=== PATIENT | female | born 1940 | race Caucasian/White ===

== ENCOUNTER 2017-03-10 11:50 | Observation (INO) | payer MEDICARE ==
[2017-03-10] MEDS ORDERED: Atenolol TAB* 25 MG PO ONE (13:29)
[2017-03-10 14:08] LABS: Hematocrit 45 % (35-47); Hemoglobin 14.4 g/dl (12.0-16.0); Mean Corpuscular HGB Conc 32 g/dl (31-36); Mean Corpuscular Hemoglobin 30 pg (27-31); Mean Corpuscular Volume 93 fL (80-97); Mean Platelet Volume 8 um3 (7.4-10.4); Red Blood Count 4.82 10^6/ul (4.0-5.4); Red Cell Distribution Width 15 % (10.5-15); White Blood Count 8.9 10^3/ul (3.5-10.8)
[2017-03-10 14:29] LABS: Albumin 3.4 g/dL (3.2-5.2); BUN/Creatinine Ratio 20.7 (8-20); EGFR African American 87.6 (>60); EGFR Non-African American 68.1 (>60); Globulin 3.4 g/dL (2-4); Potassium 4.4 mmol/L (3.5-5.0); Total Bilirubin 0.4 mg/dL (0.2-1.0); Total Protein 6.8 g/dL (6.4-8.9)
[2017-03-10 14:31] LABS: Troponin I 0.03 ng/mL (<0.04)
[2017-03-10 14:53] LABS: TSH (Thyroid Stimulating Horm) 0.72 mcIU/mL (0.34-5.60)
[2017-03-10] MEDS ORDERED: Diltiazem IV VIAL* 125 MG in D5W 100 ML BAG* 100 ML IV ONE (15:14)
[2017-03-10] MEDS: Diltiazem DRIP* 100 MG/100 ML ADDV.BAG IVPB ONE ×3 (17:01→17:37)
[2017-03-10] MEDS ORDERED: Ondansetron INJ* 2 MG/ML VIAL IV PRN (17:41)
[2017-03-10] MEDS ORDERED: Acetaminophen TAB* 325 MG PO PRN (17:41)
[2017-03-10] MEDS ORDERED: Levothyroxine TAB* 150 MCG TAB PO SCH (18:00)
[2017-03-10] MEDS ORDERED: Diltiazem DRIP* 100 MG/100 ML ADDV.BAG IVPB SCH ×3 (18:00→20:15)
--- NOTE | 2017-03-10 18:53 | RAD ---
INDICATION: Atrial fibrillation. Hypertension. COMPARISON: Chest x-ray April 29, 2010 TECHNIQUE: An AP portable view obtained at 1733 hours is submitted. FINDINGS: Bones/Soft Tissues: There are no acute bony findings. There is bilateral shoulder arthroplasty Cardiomediastinal: The cardiomediastinal silhouette is normal. Lungs: There are no infiltrates. There is mild hyperinflation. Pleura: There are no pleural effusions. Other: None IMPRESSION: MILD HYPERINFLATION. NO ACTIVE DISEASE.
[2017-03-10] MEDS ORDERED: Rivaroxaban TAB(*) 20 MG TAB PO SCH (20:00)
--- NOTE | 2017-03-11 01:47 | HP ---
HISTORY AND PHYSICAL: * ADDENDUM: DATE OF ADMISSION: 03/10/17 Ms. Hearn is a 76-year-old female with history of atrial fibrillation, on anticoagulation with Xarelto, who presented to the hospital with complaints of palpitations and was noted to be in atrial fibrillation with rapid ventricular response. The patient is going to be admitted on Cardizem drip and if she continues to have rapid atrial fibrillation, she most likely will be cardioverted by cardiology team who was consulted in this case in the morning. For further details of the patient's presentation and plan, please see history and physical dictated by Dillan Hernandez on 03/10/17, with which I agree. [id number]/[facility] #: [id number] MTDD
--- NOTE | 2017-03-11 01:47 | HP ---
ATTENDING PHYSICIAN ADDENDUM NOW INCLUDED ON THIS REPORT CC: Marycarmen Quezada MD; Dr. Evans * HISTORY AND PHYSICAL: DATE OF ADMISSION: 03/10/17 PRIMARY CARE PROVIDER: Marycarmen Quezada MD ATTENDING PHYSICIAN FROM HOSPITAL: Mary Terrell MD * (report dictated by Dillan Hernandez NP). CONSULTING INVENTORY CONTROL CLERK: Dr. Evans. CHIEF COMPLAINT: Palpitations. HISTORY OF PRESENT ILLNESS: Ms. Hearn is a 76-year-old female patient who has a history of hypothyroidism, hypertension, history of paroxysmal atrial fibrillation. She comes into the ER today stating that around midnight around Thursday, she started developing palpitations in her chest that went on throughout Thursday. They got worse when she got up. She had no chest pain. No lightheadedness. She did not lose consciousness and she had no diaphoresis or nausea associated with it. She tried Valsalva maneuver. She tried bearing down to help convert her, unfortunately this was not successful, so she decided to call her primary mainframe software developer as she knew that being in this for too long, she may need to be cardioverted. She called Dr. Blanchard's office and she was sent to the hospital for evaluation. She was evaluated in the ER. Initially, there was an extra dose of a beta polo given to the patient, unfortunately she did not slow down with this at all, so a diltiazem drip was started and because of this, we were asked to evaluate for admission. PAST MEDICAL HISTORY: Significant for: 1. Afib. 2. Hypothyroidism. 3. Hypertension. 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 HOME MEDICATIONS: According to her include: 1. Norvasc 5 mg daily. 2. Vitamin B1 capsule p.o. daily. 3. Xarelto 20 mg daily. 4. Multivitamin 1 tablet daily. 5. Synthroid 75 mcg on Thursday. 6. Synthroid 150 mcg p.o. Thursday, Thursday, Thursday, Thursday, and Thursday. 7. Ferrous sulfate 50 mg daily. 8. Atenolol 25 mg daily. ALLERGIES TO MEDICATIONS: Include ERYTHROMYCIN, HYDROCHLOROTHIAZIDE, LATEX, LEVAQUIN and PENICILLIN. FAMILY HISTORY: Her mother had breast cancer. Father had history of CAD. SOCIAL HISTORY: She does not smoke. She does drink 3 times a week, it is mostly wine. Surrogate decision maker is her . REVIEW OF SYSTEMS: There is no documented fever. She denied having any significant weight change. There was no double vision. There was no ear discharge. She denied having any rhinorrhea. No sore throat. No thyroid enlargement. She denied having any chest pain, no orthopnea and no nocturnal dyspnea. There was no abdominal pain, no nausea, no vomiting, no dysuria and no frequency. There was no seizure, no loss of consciousness. No pruritus and no skin ulcerations. Review of 14 systems completed, all others negative. PHYSICAL EXAMINATION GENERAL: At this time, Ms. Hearn is a 76-year-old female patient. She appears to be well nourished, well developed, does not appear to be in any acute distress. VITAL SIGNS: Blood pressure 133/79 with pulse 101, respirations 18, O2 saturation 97%, temperature 98.3. HEENT: Head is atraumatic, normocephalic. Eyes: EOMs intact. Sclerae are anicteric, not pale. Throat: Oral mucosa appears to be moist. No oropharyngeal erythema. NECK: Supple. LUNGS: Clear to auscultation bilaterally. No wheezes, rales or rhonchi. HEART: Sounds S1, S2. Irregularly irregular rate and rhythm. There was a grade 2/3 murmur heard in the aortic listening area. ABDOMEN: Soft, flat, nontender. Bowel sounds were present. EXTREMITIES: Pulses 2+ throughout. She is able to move all 4 extremities with 5/5 strength. NEUROLOGIC: The patient is awake, is alert and oriented x3. Her tongue is midline. Human Resources Support Specialist are equal. No gross focal deficits. SKIN: Grossly intact. DIAGNOSTIC STUDIES/LAB DATA: Revealed a WBC of 8.9, RBC of 4.82, hemoglobin of 14.4, hematocrit of 45, platelet count of 222,000. INR 1.21. Sodium 139, potassium 4.4, chloride of 106. Bicarb is 27. BUN 17, creatinine 0.82, glucose 85, lactic 1.1, calcium 9.0, mag 2, total bili of 0.4, AST 23, ALT 22, alk phos 79, troponin 0.03, albumin of 3.4, TSH normal at 0.72. She did have an EKG obtained today. EKG showed atrial fibrillation with rate of 106. No ST elevations or T-waves inversions were noted. It was reviewed with previous EKG which is from 6 years ago. The Afib is now new on this rhythm here, but she does carry a history. No other changes are noted. Old medical records were reviewed. ASSESSMENT AND PLAN: Ms. Hearn is a 76-year-old female patient who comes to the ER today with complaints of palpitations, found to be in atrial fibrillation with rapid ventricular response. She will be admitted on observation status for: 1. Atrial fibrillation. At this point, she has been on anticoagulation. She has been taking it religiously. My plan is to go ahead and continue her on a diltiazem drip and see if this will help convert her. She is right around 70 to 80 on 15 mg an hour. The plan is to make her n.p.o. after midnight if she does not convert for DC cardioversion. I did touch base with Dr. Evans, he is in agreement. Her mag, potassium and TSH are all normal. 2. Hypertension, continue meds as described with the exception that I am holding the Norvasc because this is a calcium channel polo and she is going to be on diltiazem drip. 3. Hypothyroidism, continue her Synthroid. 4. DVT prophylaxis. She is on Xarelto. 5. Code status: Full code. 7. Fluid, electrolytes, and nutrition: She can have a heart healthy diet and n.p.o. after midnight. TIME SPENT: Time spent on admission, 60 minutes, greater than half the time spent [id number] with the patient obtaining my history and physical; other half time spent going over the plan of care with the patient and implementing the plan of care. I discussed the plan of care with my attending, Dr. Terrell; she is in agreement. DILLAN HERNANDEZ NP ADDENDUM: DATE OF ADMISSION: 03/10/17 Ms. Hearn is a 76-year-old female with history of atrial fibrillation, on anticoagulation with Xarelto, who presented to the hospital with complaints of palpitations and was noted to be in atrial fibrillation with rapid ventricular response. The patient is going to be admitted on Cardizem drip and if she continues to have rapid atrial fibrillation, she most likely will be cardioverted by cardiology team who was consulted in this case in the morning. For further details of the patient's presentation and plan, please see history and physical dictated by Dillan Hernandez on 03/10/17, with which I agree. MARY TERRELL MD [id number]/[facility] #: [id number]/[facility] #: [id number] STEPHEN
[2017-03-11 05:01] LABS: Hematocrit 44 % (35-47); Hemoglobin 14.2 g/dl (12.0-16.0); Mean Corpuscular HGB Conc 33 g/dl (31-36); Mean Corpuscular Hemoglobin 30 pg (27-31); Mean Corpuscular Volume 93 fL (80-97); Mean Platelet Volume 8 um3 (7.4-10.4); Red Blood Count 4.74 10^6/ul (4.0-5.4); Red Cell Distribution Width 15 % (10.5-15); White Blood Count 9.3 10^3/ul (3.5-10.8)
[2017-03-11 05:14] LABS: Calcium 8.8 mg/dL (8.6-10.3); EGFR African American 91.5 (>60); EGFR Non-African American 71.1 (>60)
[2017-03-11] MEDS ORDERED: Levothyroxine TAB* 150 MCG TAB PO SCH (06:00)
[2017-03-11] MEDS ORDERED: Atenolol TAB* 25 MG PO SCH (06:30)
[2017-03-11] MEDS ORDERED: Midazolam* 1 MG/ML 5 ML VIAL (5 MG) ONE (12:24)
[2017-03-11] MEDS ORDERED: Flumazenil* 0.1 MG/ML 5 ML MDV ONE (12:25)
[2017-03-11] MEDS ORDERED: Naloxone* 0.4 MG/ML 1 ML VIAL ONE (12:25)
[2017-03-11] MEDS ORDERED: fentaNYL* 50 MCG/ML 2 ML VIAL (100 MCG VIAL) ONE (12:25)
--- NOTE | 2017-03-11 12:49 | CONSULT ---
Subjective Date of Service: 03/11/17 - CC: fluttering, atrial fibrillation Interval History: 76 yo followed by me for a history of paroxysmal atrial fibrillation. The patient had wine Thursday, more than usual. 2 1/2 glasses. When she went to bed she felt fine, awoke with fluttering of the chest, no CP, dizziness or SOB. She has been taking her Xarelto regularly. Family History: Unchanged from Admission - Father + CAD, mother + Breast CA. Social History: Unchanged from Admission - 1 1/2 glasses wine 3 x/week, , non smoker. Past Medical History: Findings - Paroxysmal atrial fibrillation, hypothyroid diseased, hypertension, obese. Medications Active Medications: Acetaminophen (Tylenol Tab*) 650 mg PO Q4H PRN PRN Reason: FEVER/PAIN Atenolol (Tenormin Tab*) 25 mg PO 0630 [facility] Last Admin: 03/11/17 06:35 Dose: 25 mg Levothyroxine Sodium (Synthroid Tab*) 75 mcg PO Sa@0600 [facility] Levothyroxine Sodium (Synthroid Tab*) 150 mcg PO SuMoTuWeThFr@0600 [facility] Last Admin: 03/11/17 06:24 Dose: 150 mcg Ondansetron HCl (Zofran Inj*) 4 mg IV Q6H PRN PRN Reason: NAUSEA Rivaroxaban (Xarelto (*)) 20 mg PO DAILY@1700 [facility] Last Admin: 03/10/17 20:24 Dose: 20 mg Home Medications: Atenolol TAB* [Tenormin TAB*] 25 mg PO DAILY 03/20/14 [History Confirmed ] Levothyroxine Sodium [Levoxyl] 150 mcg PO SUMOTUWETHFR 03/20/14 [History Confirmed 03/10/17] amLODIPine TAB* [Norvasc TAB*] 5 mg PO DAILY 03/20/14 [History Confirmed ] Ferrous Sulfate [Iron (Ferrous Sulfate)] 50 mg PO DAILY 03/10/17 [History Confirmed 03/10/17] Levothyroxine TAB* [Synthroid TAB*] 75 mcg PO SA 03/10/17 [History Confirmed 08/26] Multiple Vitamins W/ Minerals [Multivitamin Adults] 1 tab PO DAILY 03/10/17 [ History Confirmed 03/10/17] Rivaroxaban TAB(*) [Xarelto 20 mg] 20 mg PO DAILY 03/10/17 [History Confirmed ] Vitamin B Complex CAP* [B Complex CAP*] 1 cap PO DAILY 03/10/17 [History Confirmed 03/10/17] Review of Systems - Measurements Intake and Output: Intake and Output Last 24 Hours 03/09/17 03/10/17 03/11/17 03/12/17 04:59 04:59 04:59 04:59 Intake Total 420 0 Output Total 0 550 Balance 420 -550 Weight 227 lb Intake: Oral 420 0 Output: Urine 0 550 Other: Estimated Void Medium # Bowel Movements 0 # Voids 1 - Review of Systems Constitutional Symptoms: Negative: Weight Gain, Weight Loss, Weakness, Fatigue, Fever, Night Sweats, Unexplained Falls, Other Dermatology: Positive: Normal Negative: Rash HEENT: Positive: Normal Negative: Vertigo, Sinus Problem Eyes: Positive: Normal Thyroid: Positive: Palpitations Pulmonary: Positive: Normal Negative: Cough, Wheezing, Shortness of Breath Cardiology: Negative: Chest Pain, Shortness of Breath, Swelling of Ankles, Faintness, Orthopnea, Other Gastroenterology: Positive: Normal Genital - Urinary: Positive: Normal Musculoskeletal: Negative: Joint Pain, Arthritis Neurology: Positive: Normal Psychiatry: Positive: Normal Review of Systems Statement: All other review of systems negative, unless stated above. Objective Vital Signs: Temp Pulse Resp BP Pulse Ox 98.5 F 53 20 133/60 98 03/11/17 11:11 03/11/17 07:14 03/11/17 11:11 03/11/17 11:11 03/11/17 11:11 Oxygen Devices in Use Now: None Appearance: obese older woman, lying 20 degrees, comfortable Eyes: No Scleral Icterus, PERRLA Ears/Nose/Mouth/Throat: NL Teeth, Lips, Gums, Clear Oropharnyx, Mucous Membranes Moist Neck: NL Appearance and Movements; NL JVP Respiratory: Symmetrical Chest Expansion and Respiratory Effort, Clear to Auscultation Cardiovascular: NL Sounds; No Murmurs; No JVD - irregularly irregular Abdominal: NL Sounds; No Tenderness; No Distention, No Hepatosplenomegaly Extremities: No Edema, No Clubbing, Cyanosis Skin: No Rash or Ulcers - lazar sun exposed skin. Neurological: Alert and Oriented x 3, NL Muscle Strength and Tone Lines/Tubes/Other Access: Clean, Dry and Intact Peripheral IV Laboratory Results: 03/11/17 04:29 03/11/17 04:29 INR (Anticoag Therapy) 1.29 (0.89-1.11) H 03/10/17 13:55 Total Bilirubin 0.40 mg/dL (0.2-1.0) 03/10/17 13:55 AST 23 U/L (13-39) 03/10/17 13:55 ALT 22 U/L (7-52) 03/10/17 13:55 Alkaline Phosphatase 79 U/L (34-104) 03/10/17 13:55 Total Protein 6.8 g/dL (6.4-8.9) 03/10/17 13:55 Albumin 3.4 g/dL (3.2-5.2) 03/10/17 13:55 Globulin 3.4 g/dL (2-4) 03/10/17 13:55 Albumin/Globulin Ratio 1.0 (1-3) 03/10/17 13:55 TSH 0.72 mcIU/mL (0.34-5.60) 03/10/17 13:55 EKG Data: s/p succesful electrical cardioversion. Assessment/Plan 76 yo with paroxysmal atrial fibrillation, last episode 2010, now presents with recurrent atrial fibrillation following a bit more wine intake than usual. I re educated about alcohol contributing to atrial fibrillation. Electrolytes and thyroid levels look good. Successful cardioversion. Plan: Discharge on current medications. Minimize, avoid alcohol. No antiarrhythmic for now. Follow up with me, Dr. Acosta in 1 month.
[2017-03-11 14:06] VITALS: BP 105/57
--- NOTE | 2017-03-12 03:34 | CARD ---
CC: Hospitalist* ELECTRICAL CARDIOVERSION NOTE: DATE OF PROCEDURE: 03/11/17 - ROOM #432 SURGEON: Neyda Acosta MD PROCEDURE: Electrical cardioversion. PRE-PROCEDURE DIAGNOSIS: Atrial fibrillation. POST-PROCEDURE DIAGNOSIS: Atrial fibrillation. INDICATIONS: The indications, risks, and benefits of the procedure were discussed with the patient. She has been taking anticoagulants regularly. DESCRIPTION OF PROCEDURE: A time-out procedure was called. The patient received a total of 5 mg of Versed and 50 mcg of fentanyl for sedation. Using AP paddles, 120 joules of energy was delivered across the chest wall with successful cardioversion to normal sinus rhythm. The patient was hemodynamically stable throughout the procedure and there were no complications. [id number]/[facility] #: [id number] MTDD
--- NOTE | 2017-03-13 03:00 | DS ---
CC: Dr. Blanchard * DISCHARGE SUMMARY: DATE OF ADMISSION: 03/10/17 DATE OF DISCHARGE: 03/11/17 DISCHARGE DIAGNOSES: 1. Paroxysmal atrial fibrillation. 2. Hypothyroidism. 3. Hypertension. HISTORY: The patient is a 76-year-old woman admitted with atrial fibrillation, lasting about 36 hours in the setting of prior paroxysmal atrial fibrillation with patient on Xarelto. The patient gives additional history that she had more wine than usual on the evening before this started and had eaten chocolate which is unusual for her. Otherwise, please see the dictated admission note for details of the present illness, past medical history, family history, social and personal history, review of systems and physical examination. LABORATORY DATA: CBC: WBC 8.9, H and H 14.4/45, MCV 93, PLT 222,000. Repeat CBC on 03/11/17 was essentially unchanged. INR was 1.29. Chemistries: Sodium 139, potassium 4.4, chloride 106, CO2 27, BUN and creatinine 17/0.82, glucose 85. Rest of the comprehensive metabolic panel was normal. Troponin was normal at 0.03. TSH was normal at 0.72. Lactic acid normal at 1.1. BNP on 03/11/17 was essentially within normal limits. IMAGING: Chest x-ray on , showed mild hyperinflation, no active disease. EKG on 03/10/17, showed atrial fibrillation, ventricular rate 75 to 156. Borderline left axis deviation, borderline repolarization abnormality with ST depressions. EKG on 03/11/17, showed sinus bradycardia, probable left atrial enlargement. Cardiology consultation and cardioversion on 03/11/17, Dr. eNyda Acosta felt that the patient had paroxysmal atrial fibrillation, possibly related to having more wine than usual. She re-educated the patient about alcohol contributing to atrial fibrillation and successfully cardioverted her. HOSPITAL COURSE: The patient was admitted. She was placed on a diltiazem drip. This was stopped when she had a 2.7 seconds pause. Her Norvasc was held because she was going to be on the diltiazem drip. Her usual other medications were continued. She was a full code. On 03/11/17, she was cardioverted successfully. This was done under sedation. Rhythm following cardioversion was sinus bradycardia. She felt fine. She was discharged on 03/11/17. MEDICATIONS: At the time of discharge, her medications are: 1. Amlodipine 5 mg daily. 2. Atenolol 25 mg daily. 3. Levothyroxine 150 mcg 6 days a week, 75 mcg 1 day a week. 4. Vitamin B Complex. 5. Xarelto 20 mg daily. 6. Multivitamins once a day. 7. Ferrous sulfate 50 mg daily. FOLLOWUP: She will follow up with me in 5 to 7 days. She should see the service delivery supervisor as well. DIET: Usual with limited alcohol. ACTIVITY: As usual. [id number]/[facility] #: [id number] MTDD
--- NOTE | 2017-03-13 15:58 | ED ---
I, Oh,Somirna, scribed for Dustin Herrera MD on 03/10/17 at 1328 . Palpitations / Dysrhythmia - HPI Summary HPI Summary: This 76 y/o female presents to ED for racing palpitation since 0000 AM a day ago. Negative CP, SOB. Positive intermittent diaphoresis and fatigue. Pt took atenolol without much relief. PMHx is significant for known afib with hx of cardioversion in 2010 and last episode in November 2015. She is currently on Xarelto. Primary care involves Dr. Blanchard as jail keeper. - History of Current Complaint Chief Complaint: EDDysrhythmPalp Time Seen by Provider: 03/10/17 13:17 Hx Obtained From: Patient, Medical Records Onset/Duration: Sudden Onset Character: Fast Aggravating: Nothing Alleviating: Nothing Associated Signs & Symptoms: Negative, Diaphoresis - Allergy/Home Medications Allergies/Adverse Reactions: Allergies Allergy/AdvReac Type Severity Reaction Status Date / Time Erythromycin Allergy Unknown Verified 03/10/17 11:52 Reaction Details Hydrochlorothiazide Allergy Unknown Verified 03/10/17 11:52 Reaction Details Latex Allergy Unknown Verified 03/10/17 11:52 Reaction Details Levofloxacin [From Levaquin] Allergy Unknown Verified 03/10/17 11:52 Reaction Details Penicillins Allergy Unknown Verified 03/10/17 11:52 Reaction Details Home Medications: Home Medications Ferrous Sulfate [Iron (Ferrous Sulfate)] 50 mg PO DAILY 03/10/17 [History Confirmed 03/10/17] Levothyroxine TAB* [Synthroid TAB*] 75 mcg PO SA 03/10/17 [History Confirmed 08/26] Multiple Vitamins W/ Minerals [Multivitamin Adults] 1 tab PO DAILY 03/10/17 [ History Confirmed 03/10/17] Rivaroxaban TAB(*) [Xarelto 20 mg] 20 mg PO DAILY 03/10/17 [History Confirmed ] Vitamin B Complex CAP* [B Complex CAP*] 1 cap PO DAILY 03/10/17 [History Confirmed 03/10/17] PMH/Surg Hx/FS Hx/Imm Hx Cardiovascular History: Reports: Hx Atrial Fibrillation Denies: Hx Pacemaker/ICD Musculoskeletal History: Denies: Hx Rheumatoid Arthritis, Hx Osteoporosis Sensory History: Denies: Hx Hearing Aid Psychiatric History: Denies: Hx Panic Disorder - Cancer History Hx Chemotherapy: No Hx Radiation Therapy: No - Surgical History Surgery Procedure, Year, and Place: [place] [facility] [place] [facility] [place] [facility] [place] [facility] [place] [facility] [place] Infectious Disease History: No Infectious Disease History: Denies: Traveled Outside the [place] in Last 30 Days - Family History Known Family History: Positive: Cardiac Disease - CAD to father, Other - Positive breast CA to mother - Social History Alcohol Use: Weekly Alcohol Amount: three times a week Hx Substance Use: No Substance Use Type: Reports: None Hx Tobacco Use: No Smoking Status (MU): Never Smoked Tobacco Review of Systems Positive: Skin Diaphoresis - intermittent. Negative: Fever Positive: Palpitations. Negative: Chest Pain Negative: Shortness Of Breath All Other Systems Reviewed And Are Negative: Yes Physical Exam Triage Information Reviewed: Yes Vital Signs On Initial Exam: Initial Vitals Temp Pulse Resp BP Pulse Ox 98.2 F 147 18 131/87 98 03/10/17 11:53 03/10/17 11:53 03/10/17 11:53 03/10/17 11:53 03/10/17 11:53 Vital Signs Reviewed: Yes Appearance: Positive: Well-Appearing, No Pain Distress, Obese Skin: Positive: Warm, Skin Color Reflects Adequate Perfusion, Dry Head/Face: Positive: Normal Head/Face Inspection Eyes: Positive: Normal ENT: Positive: Normal ENT inspection Neck: Positive: Supple, Nontender Respiratory/Lung Sounds: Positive: Breath Sounds Present Cardiovascular: Positive: IRR, Tachycardia Abdomen Description: Positive: Nontender, Soft Musculoskeletal: Positive: Normal Neurological: Positive: Normal Psychiatric: Positive: Affect/Mood Appropriate AVPU Assessment: Alert - [place] Coma Scale Coma Scale Total: 15 Diagnostics - Vital Signs Vital Signs Temp Pulse Resp BP Pulse Ox 03/10/17 12:27 98.3 F 108 18 125/75 97 03/10/17 11:53 98.2 F 147 18 131/87 98 - Laboratory Lab Results: Lab Results 03/10/17 03/10/17 03/10/17 Range/Units 13:55 13:55 13:55 WBC 8.9 (3.5-10.8) 10^3/ul RBC 4.82 (4.0-5.4) 10^6/ul Hgb 14.4 (12.0-16.0) g/dl Hct 45 (35-47) % MCV 93 (80-97) fL MCH 30 (27-31) pg MCHC 32 (31-36) g/dl RDW 15 (10.5-15) % Plt Count 222 (150-450) 10^3/ul MPV 8 (7.4-10.4) um3 Neut % (Auto) 65.5 (38-83) % Lymph % (Auto) 21.7 L (25-47) % [place] % (Auto) 11.0 H (1-9) % Eos % (Auto) 1.3 (0-6) % Baso % (Auto) 0.5 (0-2) % Absolute Neuts (auto) 5.8 (1.5-7.7) 10^3/ul Absolute Lymphs (auto) 1.9 (1.0-4.8) 10^3/ul Absolute Monos (auto) 1.0 H (0-0.8) 10^3/ul Absolute Eos (auto) 0.1 (0-0.6) 10^3/ul Absolute Basos (auto) 0 (0-0.2) 10^3/ul Absolute Nucleated RBC 0.01 10^3/ul Nucleated RBC % 0.1 INR (Anticoag Therapy) 1.29 H (0.89-1.11) Sodium 139 (133-145) mmol/L Potassium 4.4 (3.5-5.0) mmol/L Chloride 106 (101-111) mmol/L Carbon Dioxide 27 (22-32) mmol/L Anion Gap 6 (2-11) mmol/L BUN 17 (6-24) mg/dL Creatinine 0.82 (0.51-0.95) mg/dL Est GFR ( Amer) 87.6 (>60) Est GFR (Non-Af Amer) 68.1 (>60) BUN/Creatinine Ratio 20.7 H (8-20) Glucose 85 (70-100) mg/dL Lactic Acid (0.5-2.0) mmol/L Calcium 9.0 (8.6-10.3) mg/dL Magnesium 2.0 (1.9-2.7) mg/dL Total Bilirubin 0.40 (0.2-1.0) mg/dL AST 23 (13-39) U/L ALT 22 (7-52) U/L Alkaline Phosphatase 79 (34-104) U/L Troponin I 0.03 (<0.04) ng/mL Total Protein 6.8 (6.4-8.9) g/dL Albumin 3.4 (3.2-5.2) g/dL Globulin 3.4 (2-4) g/dL Albumin/Globulin Ratio 1.0 (1-3) TSH 0.72 (0.34-5.60) mcIU/mL 03/10/17 Range/Units 13:55 WBC (3.5-10.8) 10^3/ul RBC (4.0-5.4) 10^6/ul Hgb (12.0-16.0) g/dl Hct (35-47) % MCV (80-97) fL MCH (27-31) pg MCHC (31-36) g/dl RDW (10.5-15) % Plt Count (150-450) 10^3/ul MPV (7.4-10.4) um3 Neut % (Auto) (38-83) % Lymph % (Auto) (25-47) % [place] % (Auto) (1-9) % Eos % (Auto) (0-6) % Baso % (Auto) (0-2) % Absolute Neuts (auto) (1.5-7.7) 10^3/ul Absolute Lymphs (auto) (1.0-4.8) 10^3/ul Absolute Monos (auto) (0-0.8) 10^3/ul Absolute Eos (auto) (0-0.6) 10^3/ul Absolute Basos (auto) (0-0.2) 10^3/ul Absolute Nucleated RBC 10^3/ul Nucleated RBC % INR (Anticoag Therapy) (0.89-1.11) Sodium (133-145) mmol/L Potassium (3.5-5.0) mmol/L Chloride (101-111) mmol/L Carbon Dioxide (22-32) mmol/L Anion Gap (2-11) mmol/L BUN (6-24) mg/dL Creatinine (0.51-0.95) mg/dL Est GFR ( Amer) (>60) Est GFR (Non-Af Amer) (>60) BUN/Creatinine Ratio (8-20) Glucose (70-100) mg/dL Lactic Acid 1.1 (0.5-2.0) mmol/L Calcium (8.6-10.3) mg/dL Magnesium (1.9-2.7) mg/dL Total Bilirubin (0.2-1.0) mg/dL AST (13-39) U/L ALT (7-52) U/L Alkaline Phosphatase (34-104) U/L Troponin I (<0.04) ng/mL Total Protein (6.4-8.9) g/dL Albumin (3.2-5.2) g/dL Globulin (2-4) g/dL Albumin/Globulin Ratio (1-3) TSH (0.34-5.60) mcIU/mL Result Diagrams: 03/11/17 04:29 03/11/17 04:29 Lab Statement: Any lab studies that have been ordered have been reviewed, and results considered in the medical decision making process. - EKG 1159 EKG Rhythm: Atrial Fibrillation - at 106 bpm Re-Evaluation - Re-Evaluation First Eval Re-Evaluation Time: 15:13 Comment: MD in room to re-evaluate pt, who is still in afib on monitor. Pt will be given cardizem. Course/Dx - Course Course Of Treatment: Consultation: Dillan Hernandez NP (Hospitalist) at 1704 PM. Joey Reddy at 1722 PM Assessment/Plan: Ms. Hearn presented with A-Fib with RVR. I initially tried to treat her orally as she was not very symptomatic but eventually had to start IV diltiazem. - Diagnoses Provider Diagnoses: Atrial fibrillation with rapid ventricular response - Physician Notifications Discussed Care Of Patient With: Dillan Hernandez Time Discussed With Above Provider: 17:04 Instructed by Provider To: Admit As Inpatient - Critical Care Time Critical Care Time: 30-74 min - Critical Care: 30 minutes Discharge - Discharge Plan Condition: Stable Disposition: ADMITTED TO [facility] documentation as recorded by the Silvano yost Soohyun accurately reflects the service I personally performed and the decisions made by me, Dustin Herrera MD.
[2017-03-14] MEDS ORDERED: Levothyroxine TAB* 75 MCG TAB PO SCH (06:00)
== END 2017-03-11 15:18 | disposition home or self-care (01) ==
LOC: ED 11:50 → MEDTELE 17:36
PROVIDERS: ADMIT Internal Medicine; ATTEND Internal Medicine Geriatric Medicine
DX: I48.0 Paroxysmal atrial fibrillation (principal); E03.9 Hypothyroidism, unspecified; I10 Essential (primary) hypertension; Z79.01 Long term (current) use of anticoagulants
CPT/HCPCS: 36415; 71010; 80048; 80053; 83605; 83735; 84443; 84484; 85025; 85610; 92960; 93005; 99156; 99284; A9270-GY; G0378; J2250; J2310; J3010

== ENCOUNTER 2017-05-19 11:07 | Emergency (ER) | payer MEDICARE ==
[2017-05-19 11:20] VITALS: BP 147/64
--- NOTE | 2017-05-19 11:59 | RAD ---
INDICATION: Left knee pain COMPARISON: Left knee April 29, 2010 TECHNIQUE: Standing weightbearing AP, lateral and sunrise views were obtained. FINDINGS: There is left knee arthroplasty. There is no evidence of hardware failure. There is a supra patellar joint effusion. IMPRESSION: LEFT KNEE ARTHROPLASTY WITHOUT EVIDENCE OF HARDWARE FAILURE. JOINT EFFUSION.
--- NOTE | 2017-05-19 12:08 | UC ---
Knee Pain HPI - HPI Summary HPI Summary: THREE DAYS FO LEFT KNEE PAIN, WORSE WITH MOVING FROM LAYING DOWN TO AMBULATION. HAD LEFT KNEE REPLACEMETN IN 2009. NO WARMTH. NO REDNESS. NO CALF PAIN. NO SOB. HAD FEVER 101F LAST NIGHT. ONLY PAIN TODAY. NO TRAUMA. - History of Current Complaint Chief Complaint: UCLowerExtremity Stated Complaint: KNEE PAIN FEVER Time Seen by Provider: 05/19/17 11:17 Hx Obtained From: Patient, Family/Criminal Intelligence Analyst Onset/Duration: Sudden Onset, Lasting Days, Still Present Severity Initially: Moderate Severity Currently: Moderate Aggravating Factor(s): Movement, Weight Bearing Alleviating Factor(s): Rest, Position Associated Signs And Symptoms: Positive: Swelling, Fever Able to Bear Weight: Yes - WITH PAIN - Risk Factors Septic Arthritis Risk Factor: Negative Gout Risk Factor: Negative - Allergies/Home Medications Allergies/Adverse Reactions: Allergies Allergy/AdvReac Type Severity Reaction Status Date / Time Erythromycin Allergy Unknown Verified 05/19/17 11:17 Reaction Details Hydrochlorothiazide Allergy Unknown Verified 05/19/17 11:17 Reaction Details Latex Allergy Unknown Verified 05/19/17 11:17 Reaction Details Levofloxacin [From Levaquin] Allergy Unknown Verified 05/19/17 11:17 Reaction Details Penicillins Allergy Unknown Verified 05/19/17 11:17 Reaction Details PMH/Surg Hx/FS Hx/Imm Hx Previously Healthy: Yes - Surgical History Surgical History: Yes Surgery Procedure, Year, and Place: RIGHT PROSTETIC SHOULDER AT [facility] [place]. RT KNEE REPLACEMENT AT [facility] [place]. LT KNEE REPLACEMENT AT [facility] [place]. RT LUMPECTOMY AT [facility] [place]. TUBAL AT [facility] [place] - Family History Known Family History: Positive: Cardiac Disease - CAD to father, Other - Positive breast CA to mother - Social History Occupation: Retired Lives: With Family Alcohol Use: Weekly Alcohol Amount: three times a week Substance Use Type: None Smoking Status (MU): Former Smoker Review of Systems Constitutional: Fever - RESOLVED PRESENTLY Skin: Negative Eyes: Negative ENT: Negative Respiratory: Negative Cardiovascular: Negative Gastrointestinal: Negative Genitourinary: Negative Motor: Negative Neurovascular: Negative Musculoskeletal: Arthralgia, Myalgia Neurological: Negative Psychological: Negative Is Patient Immunocompromised?: No All Other Systems Reviewed And Are Negative: Yes Physical Exam Triage Information Reviewed: Yes Appearance: Well-Appearing, Well-Nourished, Pain Distress Vital Signs: Initial Vital Signs Temp 97.6 F 05/19/17 11:17 Pulse 84 05/19/17 11:17 Resp 18 05/19/17 11:17 BP 147/64 05/19/17 11:17 Pulse Ox 100 05/19/17 11:17 Vital Signs Reviewed: Yes Eye Exam: Normal ENT Exam: Normal ENT: Positive: Normal ENT inspection, TMs normal Dental Exam: Normal Neck exam: Normal Respiratory Exam: Normal Respiratory: Positive: Chest non-tender, Lungs clear, Normal breath sounds, No respiratory distress, No accessory muscle use Cardiovascular Exam: Normal Cardiovascular: Positive: RRR, No Murmur, Pulses Normal, Brisk Capillary Refill Abdominal Exam: Normal Musculoskeletal: Positive: No Edema, Strength Limited @ - LEFT KNEE, ROM Limited @ - LEFT KNEE Neurological Exam: Normal Psychological Exam: Normal Skin Exam: Normal Diagnostics - Radiology Interpreted by radiologist, reviewed by [employer]. Interpretation: LEFT KNEE ARTHROPLASTY WITHOUT EVIDENCE OF HARDWARE FAILURE. JOINT EFFUSION. Xray Interpretation: Positive (See Comments) Radiology Interpretation Completed By: ED Physician, Radiologist Knee Pain Course/Dx - Differential Dx/Diagnosis Differential Diagnosis/HQI/PQRI: Sprain, Strain Provider Diagnoses: LEFT KNEE PAIN; SUPERPATELLAR EFFUSION Discharge - Discharge Plan Condition: Stable Disposition: HOME Prescriptions: DOXYcycline CAP(*) [DOXYcycline 100MG CAP(*)] 100 mg PO BID #20 cap Patient Education Materials: Swollen Knee Joint (ED), Knee Pain (ED) Referrals: Marycarmen Quezada MD [Primary Care Provider] - Kade Alicia MD [Medical Doctor] - Additional Instructions: PLEASE SEEK EVALUATION AT THE EMERGENCY DEPARTMENT IF FEVER RETURNS IF YOU HAVE CALF PAIN OR SHORTNESS OF BREATH, IF SYMPTOMS WORSEN, OR IF NEW SYMPTOMS DEVELOP.
[2017-05-19 16:43] LABS: Hematocrit 40 % (35-47); Hemoglobin 13.4 g/dl (12.0-16.0); Mean Corpuscular HGB Conc 34 g/dl (31-36); Mean Corpuscular Hemoglobin 30 pg (27-31); Mean Corpuscular Volume 89 fL (80-97); Mean Platelet Volume 9 um3 (7.4-10.4); Red Blood Count 4.52 10^6/ul (4.0-5.4); Red Cell Distribution Width 14 % (10.5-15); White Blood Count 13.9 10^3/ul (3.5-10.8)
[2017-05-19 16:44] LABS: Add Diff/Slide Review? Slide Review Added; Comments Flag Yes
[2017-05-19 18:29] LABS: Erythrocyte Sed Rate 59 mm/Hr (0-40)
--- NOTE | 2017-05-20 09:14 | UC ---
Progress - Progress Note Progress Note: PLS CALL PT. ELEVATED MARKERS OF INFLAMMATION AND SLIGHTLY ELEVATED WBCs. SEEK FOLLOW-UP IF KNEE PAIN IS NOT IMPROVING. - RENATA HAGAN MD
== END 2017-05-19 12:30 | disposition home or self-care (01) ==
LOC: UCEAST 11:07
DX: M25.462 Effusion, left knee (principal); Z88.0 Allergy status to penicillin; Z87.891 Personal history of nicotine dependence
CPT/HCPCS: 36415; 85025; 85652; 86140; 99213; G0463

== ENCOUNTER 2019-01-31 16:23 | Emergency (ER) | payer MEDICARE ==
--- OUTSIDE RECORDS SUMMARY | 2019-01-31 16:39 | XMS REPORT | Continuity of Care Document ---
:1940 External Reference #:[id number] Author Name Radha Moreno Care Team Providers Name Role Phone Neyda Acosta MD Care Team Information Turner Machine Unavailable Marycarmen Quezada MD Primary Care Physician Unavailable Payers Date Identification Numbers Payment Provider Subscriber Effective: Policy Number: [id number] Medicare Blue Ppo Mimi Hearn 2013 Group Number: [id number] [address] [address] PayID: [id number] [place] [address] Problems Active Problems Provider Date Atrial fibrillation Noah Blanchard M.D. Onset: 02/22/2016 Hypothyroidism Noah Blanchard M.D. Onset: 02/22/2016 Essential hypertension Noah Blanchard M.D. Onset: 02/22/2016 Family History Date Family Member(s) Observation Comments General Heart Disease Social History Type Date Description Comments Sex Unknown Lives With Tobacco Use Start: Unknown Heavy tobacco smoker (more than 10 cigarettes/day) Tobacco Use Start: Unknown quit smoking 1998 Smoking Status Reviewed: 04/29/17 quit smoking 1998 ETOH Use Consumes 3 glasses of wine per week Tobacco Use Start: Unknown End: Patient is a former smoker Unknown Recreational Drug Use Denies Drug Use Exercise Type/Frequency Exercises sporadically Allergies, Adverse Reactions, Alerts Active Allergies Reaction Severity Comments Date Penicillin 03/06/2014 Levaquin 03/06/2014 Darvon 03/06/2014 Hydrochlorothiazide 03/06/2014 Erythromycin Stomach pain 01/25/2015 Adhesive per patient 02/22/2016 Multaq difficulty breathing per patient 02/22/2016 Wellbutrin hives Moderate 04/29/2017 Medications Active Medications SIG Qnty Indications Ordering Date Provider Matty 1 by mouth every 90tabs I48.0 Noah Rosado 02/22/2016 5mg Tablets day [place], Callie Levothyroxine Sodium 1 tablet po three Marycarmen Quezada, times a week ( 150mcg Tablets Plan to increase 02/23/16 directions 1 tablet po daily *) * change made Dr. Carol Quezada Atenolol 1 tablet po daily Unknown 25mg Tablets Clindamycin HCL 4 capsules 1 hour Unknown 150mg before dental Capsules visit Multivitamins 1 tablet po daily Unknown Vitamin B Complex 1 by mouth every Unknown day Tablets Xarelto 1 tablet po daily Unknown 20mg Tablets ( started 07/12/16 Dr. Booker Staton Food Server) Iron 1 by mouth every Marycarmen Quezada, 325(65Fe) mg day ( started May Tablets 2014 ) History Medications Multaq 1 tab by mouth 180tabs Neyda Acosta, 09/07/2013 - 400mg Tablets twice a day M.D. 07/13/2015 Vicodin 1-2 tablets po qhs 50tabs Carl Babin, 03/03/2013 - 5-500mg as needed M.D. 03/03/2014 Tablets Losartan Potassium 1 by mouth every 90tabs Neyda Acosta, 12/29/2012 - day M.D. 07/12/2015 50mg Tablets Clindamycin HCL Take 2 Capsules By 2caps Mario Dao, 08/02/2012 - 300mg Mouth Prior To M.D. 03/03/2014 Capsules Procedure Percocet 1-2 tabs po q4-6 90tabs Mario Dao, 04/26/2012 - 5-325mg prn pain M.D. 03/03/2013 Tablets Coumadin take 1-3 as 90tabs Mario Dao, 04/26/2012 - 2.5mg directed at 5pm M.D. 03/06/2014 Tablets daily Flexeril 1 po tid prn 60tabs Carl Babin, 04/15/2012 - 10mg Tablets M.D. 03/03/2014 Motrin take one tablet by 90tabs Carl Babin, 02/27/2011 - 800mg Tablets mouth twice times M.D. 03/03/2014 daily as needed Percocet 1-2 po q4-6h prn 60tabs Carl Babin, 01/31/2011 - 5-325mg pain M.D. 03/03/2014 Tablets Levothyroxine Sodium 1 tablet four times Marycarmen Quezada, - a week alternate 02/21/2016 175mcg Tablets Amlodipine Besylate 1 and 1/2 tablet po Marycarmen Quezada, - daily 08/27/2014 5mg Tablets Ibuprofen 2 tablet po daily Unknown - 800mg 07/12/2015 Tablets Aspirin 1 by mouth every Unknown - 325mg Tablets day 07/12/2015 Diltiazem HCL 1 tablet po twice I48.0 Unknown - 30mg daily Am/PM ( 02/22/[address] Marcano Food Server MD) Medications Administered in Office Medication SIG Qnty Indications Ordering Provider Date Inj, Regadenoson, 0.1 MG Neyda Acosta M.D. 03/28/2013 Injection Technetium TC 99M Tetrofosmin, Neyda Acosta M.D. 03/28/2013 Per Unit Dose Up To 40 Millicuries Injection Depomedrol 80MG Carl Babin M.D. 03/24/2013 Injection Vital Signs Date Vital Result Comment 04/29/2017 11:27am Height 63 inches 5'3" Weight 227.00 lb with shoes Heart Rate 60 /min BP Systolic Sitting 142 mmHg Rue lrg cuff BP Diastolic Sitting 86 mmHg Rue lrg cuff BP Systolic Standing 144 mmHg Rue lrg cuff BP Diastolic Standing 88 mmHg Rue lrg cuff Respiratory Rate 16 /min BMI (Body Mass Index) 40.2 kg/m2 Ejection Fraction 48% 04/06/2012-echo 02/22/2016 11:12am Height 63 inches 5'3" Weight 223.00 lb with shoes Heart Rate 62 /min BP Systolic 148 mmHg 15 min retake BP Diastolic 96 mmHg 15 min retake BP Systolic Sitting 158 mmHg LA lrg cuff BP Diastolic Sitting 100 mmHg LA lrg cuff BP Systolic Standing 162 mmHg LA lrg cuff BP Diastolic Standing 102 mmHg LA lrg cuff Respiratory Rate 17 /min BMI (Body Mass Index) 39.5 kg/m2 Ejection Fraction 48% date 04/06/12 ECHO 05/21/2015 2:54pm Height 63 inches 5'3" Weight 223.00 lb BMI (Body Mass Index) 39.5 kg/m2 01/25/2015 10:24am Height 64 inches 5'4" Weight 232.00 lb w/o shoes Heart Rate 50 /min reg BP Systolic Sitting 106 mmHg Rue, lg cuff BP Diastolic Sitting 80 mmHg Rue, lg cuff BP Systolic Standing 104 mmHg Rue BP Diastolic Standing 76 mmHg Rue Respiratory Rate 18 /min BMI (Body Mass Index) 39.8 kg/m2 Ejection Fraction 48% Calculated Ef as of 04/06/12 echo 03/06/2014 11:15am Height 64 inches 5'4" Weight 230.00 lb with shoes Heart Rate 58 /min hr reg BP Systolic Sitting 144 mmHg Ra lg cuff BP Diastolic Sitting 88 mmHg Ra lg cuff BP Systolic Standing 130 mmHg Ra lg cuff BP Diastolic Standing 80 mmHg Ra lg cuff Respiratory Rate 16 /min BMI (Body Mass Index) 39.5 kg/m2 12/17/2010 9:59am Height 64 inches 5'4" Weight 217.00 lb Heart Rate 65 /min BP Systolic 154 mmHg BP Diastolic 81 mmHg BMI (Body Mass Index) 37.2 kg/m2 Results Test Date Facility Test Result H/L Range Note Laboratory test 03/10/2013 [facility] Blood Urea 22 mg/dL 6- [address] [place] [address] [phone] Creatinine 03/10/2013 [facility] Creatinine 1.00 mg/dL 0.50- 1.[address] [place] [address] [phone] Egfr Non- 54.8 >60 Egfr 70.5 >60 1 1 Because ethnic data is not always readily available, this report includes an eGFR for both -Americans and non- Americans. The National Kidney Disease Education Program (NKDEP) does not endorse the use of the MDRD equation for patients that are not between the ages of 18 and 70, are , have extremes of body size, muscle mass, or nutritional status, or are non- or non-. According to the National Kidney Foundation, irrespective of diagnosis, the stage of the disease is based on the level of kidney function: Stage Description GFR(mL/min/1.73 m(2)) 1 Kidney damage with normal or decreased GFR 90 2 Kidney damage with mild decrease in GFR 60-89 3 Moderate decrease in GFR 30-59 4 Severe decrease in GFR 15-29 5 Kidney failure <15 (or dialysis) Procedures Date Code Description Status 04/29/2017 55448 EKG Tracing & Interpretation Completed 03/11/2017 50453 Cardioversion Completed 02/22/2016 34913 EKG Tracing & Interpretation Completed 01/25/2015 47483 EKG Tracing & Interpretation Completed 03/06/2014 27884 EKG Tracing & Interpretation Completed 03/31/2013 78533 ECHO Transthoracic, Real-Time 2D With Doppler And Color Completed Flow 03/28/2013 13343 Stress Test Completed 03/28/2013 71443 Myocardial Perfusion Imaging Tomographic (Spect) Multiple Completed Studies 03/24/2013 32258 Inject/Drain Joint/Bursa Major W/O US Completed 03/23/2013 49068 EKG Tracing & Interpretation Completed 06/09/2012 08073 Rad Exam; Foot Limited Completed 06/09/2012 96969 Xray Knee 3 Views Completed 06/09/2012 88896 Rad Exam; Knee, Ap&L Completed 05/04/2012 43491 TKR Total Knee Replacement Completed 05/04/2012 94319 TKR Total Knee Replacement Completed 04/15/2012 31916 Rad Shoulder Comp, Min. 2 Views Completed 01/07/2012 78342 Xray Knee 3 Views Completed 01/07/2012 18660 Rad Exam; Knee, Ap&L Completed 01/08/2011 97471 Rad Shoulder Comp, Min. 2 Views Completed 12/30/2010 78672 Arthroplasty Glenohumeral Joint Hemiarthroplasty Completed 12/30/2010 61286 Arthroplasty Glenohumeral Joint Hemiarthroplasty Completed 07/02/2010 52054 Xray Knee 3 Views Completed 07/02/2010 64611 Rad Exam; Knee, Ap&L Completed 05/07/2010 37391 TKR Total Knee Replacement Completed 05/07/2010 66244 TKR Total Knee Replacement Completed 05/01/2010 25410 Xray Knee 3 Views Completed 05/01/2010 61585 Rad Exam; Knee, Ap&L Completed 05/30/2009 78132 Rad Exam; Both Knees, Standing Ap Completed 09/11/2005 24606 Color Doppler Completed 09/11/2005 02726 Pulse Doppler & Continuous Wave Completed 09/11/2005 83740 Echocardiogram Completed Encounters Type Date Location Provider Dx Diagnosis Office Visit 04/29/2017 [facility] Noah Rosado I48.0 Paroxysmal atrial 11:30a Of Miguel Blanchard M.D. fibrillation Office Visit 03/10/2017 [facility] I48.91 Unspecified atrial 12:59p Assoc,joanna Hernandez, N.P. fibrillation Hospitalists I10 Essential (primary) hypertension E03.9 Hypothyroidism, unspecified Office Visit 02/22/2016 11:30a [place] Zak Rosado I48.0 Paroxysmal atrial Of Miguel Blanchard M.D. fibrillation I10 Essential (primary) hypertension M19.90 Unspecified osteoarthritis, unspecified site Office Visit 05/21/2015 2:45p Orthopedic Mario Dao, Z96.653 Presence of Services Of Callie artificial knee C.M.A. joint, bilateral Z96.651 Presence of right artificial knee joint Office Visit 01/25/2015 10:45a [place] Zak Rosado 427.31 Atrial Of Miguel Blanchard M.D. Fibrillation 401.9 Hypertension Unspec Office Visit 03/06/2014 11:15a Yoli Acosta 427.31 Atrial Cardiology Of M.D. Fibrillation Open Hearth Door Liner 401.9 Hypertension Unspec Office Visit 03/24/2013 [facility] 715.91 Osteoarthrosis 4:30p Services Of Callie Babin Unspec Genlzd Or C.M.A. 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 Fibrillation Open Hearth Door Liner 401.9 Hypertension Unspec 785.2 Murmur Cardiac Undiagnosed Office Visit 03/03/2013 Steve Henry 840.4 Sprains & Strains 11:45a Services Of Callie Babin Rotator Cuff C.M.A. (Capsule) Office Visit 04/15/2012 Steve Henry 840.9 Sprains & Strains 2:00p Services Of Callie Babin Shoulder & Upper Arm C.M.A. Unspec Office Visit 01/07/2012 Orthopedic Mario Dao, 715.96 Osteoarthrosis 3:00p Services Of Callie Unspec Genlzd Or C.M.A. Localized Lower Leg Office Visit 07/17/2011 Orthopedic Carl 715.91 Osteoarthrosis 3:15p Services Of Callie Babin Unspec Genlzd Or C.M.A. Localized Shoulder Office Visit 06/10/2011 Orthopedic Carl 715.91 Osteoarthrosis 10:15a Services Of Callie Babin Unspec Genlzd Or C.M.A. Localized Shoulder Office Visit 04/30/2011 Orthopedic Carl 715.91 Osteoarthrosis 10:15a Services Of Callie Babin Unspec Genlzd Or C.M.A. Localized Shoulder Office Visit 12/18/2010 Orthopedic Mario Dao, 715.96 Osteoarthrosis 9:45a Services Of Callie Kraft Genlzd Or C.M.A. Localized Lower Leg Office Visit 12/17/2010 Orthopedic Carl 715.91 Osteoarthrosis 10:15a Services Of Callie Babin Unspec Genlzd Or C.M.A. Localized Shoulder Office Visit 06/26/2010 Orthopedic Carl 715.91 Osteoarthrosis 10:45a Services Of Callie Babin Unspec Genlzd Or C.M.A. Localized Shoulder Office Visit 05/30/2009 Orthopedic Mario Dao, 716.96 Arthropathy Unspec 2:30p Services Of Callie Lower Leg C.M.A. 719.46 Pain Joint Lower Leg Plan of Treatment Future Appointment(s):02/09/2019 10:00 am - Noah Blanchard M.D. at [facility]04/29/2017 - Noah Blanchard M.D.I48.0 Paroxysmal atrial fibrillationFollow up:1 year
--- OUTSIDE RECORDS SUMMARY | 2019-01-31 16:40 | XMS REPORT | Continuity of Care Document ---
:1940 External Reference #:[id number] Author Name Radha Moreno Care Team Providers Name Role Phone Neyda Acosta MD Care Team Information Production Clerks Supervisor Unavailable Marycarmen Quezada MD Primary Care Physician Unavailable Payers Date Identification Numbers Payment Provider Subscriber Effective: Policy Number: [id number] Medicare Blue Ppo Mimi Hearn 2013 Group Number: [id number] [address] [address] PayID: [id number] [place] [address] Problems Active Problems Provider Date Atrial fibrillation [...] Tablets ( started 07/12/16 Dr. Booker Staton Construction Engineer) Iron 1 by mouth every Marycarmen Quezada, [...] Am/PM ( 02/22/[address] Marcano Construction Engineer [place]) Medications Administered in Office Medication SIG Qnty [...] Result H/L Range Note Laboratory test 03/10/2013 [facility] Blood Urea 22 mg/dL 6- [address] [place] [address] [phone] Creatinine 03/10/2013 [facility] Creatinine 1.00 mg/dL 0.50- 1.[address] [place] [address] [phone] Egfr Non- 54.8 >60 Egfr 70.5 >60 [...] dialysis) Procedures Date Code Description Status 04/29/2017 70412 EKG Tracing & Interpretation Completed 03/11/2017 64601 Cardioversion Completed 02/22/2016 39010 EKG Tracing & Interpretation Completed 01/25/2015 43399 EKG Tracing & Interpretation Completed 03/06/2014 25254 EKG Tracing & Interpretation Completed 03/31/2013 47635 ECHO Transthoracic, Real-Time 2D With Doppler And Color Completed Flow 03/28/2013 39624 Stress Test Completed 03/28/2013 58446 Myocardial Perfusion Imaging Tomographic (Spect) Multiple Completed Studies 03/24/2013 21054 Inject/Drain Joint/Bursa Major W/O US Completed 03/23/2013 53448 EKG Tracing & Interpretation Completed 06/09/2012 59114 Rad Exam; Foot Limited Completed 06/09/2012 89297 Xray Knee 3 Views Completed 06/09/2012 46515 Rad Exam; Knee, Ap&L Completed 05/04/2012 33576 TKR Total Knee Replacement Completed 05/04/2012 82099 TKR Total Knee Replacement Completed 04/15/2012 47502 Rad Shoulder Comp, Min. 2 Views Completed 01/07/2012 43009 Xray Knee 3 Views Completed 01/07/2012 86954 Rad Exam; Knee, Ap&L Completed 01/08/2011 77040 Rad Shoulder Comp, Min. 2 Views Completed 12/30/2010 30308 Arthroplasty Glenohumeral Joint Hemiarthroplasty Completed 12/30/2010 18690 Arthroplasty Glenohumeral Joint Hemiarthroplasty Completed 07/02/2010 09637 Xray Knee 3 Views Completed 07/02/2010 20266 Rad Exam; Knee, Ap&L Completed 05/07/2010 63785 TKR Total Knee Replacement Completed 05/07/2010 78165 TKR Total Knee Replacement Completed 05/01/2010 02858 Xray Knee 3 Views Completed 05/01/2010 39390 Rad Exam; Knee, Ap&L Completed 05/30/2009 81950 Rad Exam; Both Knees, Standing Ap Completed 09/11/2005 91251 Color Doppler Completed 09/11/2005 95578 Pulse Doppler & Continuous Wave Completed 09/11/2005 59326 Echocardiogram Completed Encounters Type Date Location Provider Dx Diagnosis Office Visit 04/29/2017 [facility] Noah Rosado I48.0 Paroxysmal atrial 11:30a Of Miguel Blanchard M.D. fibrillation Office Visit 03/10/2017 [facility] I48.91 Unspecified atrial 12:59p Assoc,joanna Hernandez, N.P. fibrillation Hospitalists I10 Essential (primary) hypertension E03.9 Hypothyroidism, unspecified Office Visit 02/22/2016 11:30a [place] Zak Rosado I48.0 Paroxysmal atrial Of Miguel Blanchard M.D. fibrillation I10 Essential (primary) hypertension M19.90 Unspecified osteoarthritis, unspecified site Office Visit 05/21/2015 2:45p Orthopedic Mario Dao, Z96.653 Presence of Services Of Callie artificial knee C.M.A. joint, bilateral Z96.651 Presence of right artificial knee joint Office Visit 01/25/2015 10:45a [place] Zak Rosado 427.31 Atrial Of Miguel Blanchard M.D. Fibrillation 401.9 Hypertension Unspec Office Visit 03/06/2014 11:15a Yoli Acosta 427.31 Atrial Cardiology Of M.D. Fibrillation Care Nurse Rn 401.9 Hypertension Unspec Office Visit 03/24/2013 Steve Henry 715.91 Osteoarthrosis 4:30p Services Of Callie Babin Unspec Genlzd Or C.M.A. 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 Fibrillation Care Nurse Rn 401.9 Hypertension Unspec 785.2 Murmur Cardiac Undiagnosed [...] 10:00 am - Noah Blanchard M.D. at [facility]04/29/2017 - Noah Blanchard M.D.I48.0 Paroxysmal atrial fibrillationFollow up:1 year
--- OUTSIDE RECORDS SUMMARY | 2019-01-31 16:40 | XMS REPORT | Continuity of Care Document ---
:1940 External Reference #:[id number] Author Name Radha Moreno Care Team Providers Name Role Phone Neyda Acosta MD Care Team Information Provider Relations Specialist Unavailable Marycarmen Quezada MD Primary Care Physician Unavailable Payers Date Identification Numbers Payment Provider Subscriber Effective: Policy Number: [id number] Medicare Blue Ppo Mimi Hearn 2013 Group Number: [id number] [address] [address] PayID: [id number] [place] [address] Problems Active Problems Provider Date Atrial fibrillation Noah Blanchard M.D. Onset: 02/22/2016 Hypothyroidism Noah Blanchard M.D. Onset: 02/22/2016 Essential hypertension Naoh Blanchard M.D. Onset: 02/22/2016 Family History Date [...] Tablets ( started 07/12/16 Dr. Booker Staton Manager Motor) Iron 1 by mouth every Marycarmen Quezada, [...] Am/PM ( 02/22/[address] Marcano Manager Motor [place]) Medications Administered in Office Medication SIG Qnty [...] Result H/L Range Note Laboratory test 03/10/2013 [facility] Blood Urea 22 mg/dL 6- [address] [place] [address] [phone] Creatinine 03/10/2013 [facility] Creatinine 1.00 mg/dL 0.50- 1.[address] [place] [address] [phone] Egfr Non- 54.8 >60 Egfr 70.5 >60 [...] dialysis) Procedures Date Code Description Status 04/29/2017 83708 EKG Tracing & Interpretation Completed 03/11/2017 05947 Cardioversion Completed 02/22/2016 72467 EKG Tracing & Interpretation Completed 01/25/2015 47197 EKG Tracing & Interpretation Completed 03/06/2014 19456 EKG Tracing & Interpretation Completed 03/31/2013 14893 ECHO Transthoracic, Real-Time 2D With Doppler And Color Completed Flow 03/28/2013 51085 Stress Test Completed 03/28/2013 76855 Myocardial Perfusion Imaging Tomographic (Spect) Multiple Completed Studies 03/24/2013 49871 Inject/Drain Joint/Bursa Major W/O US Completed 03/23/2013 43920 EKG Tracing & Interpretation Completed 06/09/2012 56583 Rad Exam; Foot Limited Completed 06/09/2012 27856 Xray Knee 3 Views Completed 06/09/2012 48044 Rad Exam; Knee, Ap&L Completed 05/04/2012 32817 TKR Total Knee Replacement Completed 05/04/2012 52566 TKR Total Knee Replacement Completed 04/15/2012 46396 Rad Shoulder Comp, Min. 2 Views Completed 01/07/2012 06450 Xray Knee 3 Views Completed 01/07/2012 43483 Rad Exam; Knee, Ap&L Completed 01/08/2011 97761 Rad Shoulder Comp, Min. 2 Views Completed 12/30/2010 39269 Arthroplasty Glenohumeral Joint Hemiarthroplasty Completed 12/30/2010 56199 Arthroplasty Glenohumeral Joint Hemiarthroplasty Completed 07/02/2010 20411 Xray Knee 3 Views Completed 07/02/2010 21024 Rad Exam; Knee, Ap&L Completed 05/07/2010 06575 TKR Total Knee Replacement Completed 05/07/2010 08501 TKR Total Knee Replacement Completed 05/01/2010 16855 Xray Knee 3 Views Completed 05/01/2010 46249 Rad Exam; Knee, Ap&L Completed 05/30/2009 09106 Rad Exam; Both Knees, Standing Ap Completed 09/11/2005 61576 Color Doppler Completed 09/11/2005 82573 Pulse Doppler & Continuous Wave Completed 09/11/2005 70790 Echocardiogram Completed Encounters Type Date Location Provider Dx Diagnosis Office Visit 04/29/2017 [facility] Noah Rosado I48.0 Paroxysmal atrial 11:30a Of Miguel Blanchard M.D. fibrillation Office Visit 03/10/2017 [facility] I48.91 Unspecified atrial 12:59p Assoc,joanna Hernandez, N.P. fibrillation Hospitalists I10 Essential (primary) hypertension E03.9 Hypothyroidism, unspecified Office Visit 02/22/2016 11:30a [place] Zak Rosado I48.0 Paroxysmal atrial Of Miguel Blanchard M.D. fibrillation I10 Essential (primary) hypertension M19.90 Unspecified osteoarthritis, unspecified site Office Visit 05/21/2015 2:45p Orthopedic Mario Dao, Z96.653 Presence of Services Of Callie artificial knee C.M.A. joint, bilateral Z96.651 Presence of right artificial knee joint Office Visit 01/25/2015 10:45a [place] Zak Rosado 427.31 Atrial Of Miguel Blanchard M.D. Fibrillation 401.9 Hypertension Unspec Office Visit 03/06/2014 11:15a Yoli Acosta 427.31 Atrial Cardiology Of M.D. Fibrillation Insurance Salesman 401.9 Hypertension Unspec Office Visit 03/24/2013 Steve Henry 715.91 Osteoarthrosis 4:30p Services Of Callie Babin Unspec Genlzd Or C.M.A. 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 Fibrillation Insurance Salesman 401.9 Hypertension Unspec 785.2 Murmur Cardiac Undiagnosed [...] 10:00 am - Noah Blanchard M.D. at [facility]04/29/2017 - Noah Blanchard M.D.I48.0 Paroxysmal atrial fibrillationFollow up:1 year
[2019-01-31 19:01] LABS: ABS Eosinophils 0.1 10^3/ul (0-0.6); ABS Monocytes 0.7 10^3/ul (0-0.8); ABS Neutrophils 7.1 10^3/ul (1.5-7.7); Eosinophil % 0.7 %; Hematocrit 43 % (35-47); Hemoglobin 14.2 g/dL (12.0-16.0); Mean Corpuscular HGB Conc 34 g/dL (31-36); Mean Corpuscular Hemoglobin 31 pg (27-31); Mean Corpuscular Volume 93 fL (80-97); Mean Platelet Volume 7.8 fL (7.4-10.4); Nucleated Red Blood Cells % 0.1; Platelet Count 181 10^3/uL (150-450); Red Cell Distribution Width 16 % (10-15); White Blood Count 8.9 10^3/uL (3.5-10.8)
[2019-01-31 19:14] LABS: Albumin 3.9 g/dL (3.2-5.2); Albumin/Globulin Ratio 1.3 (1-3); BUN/Creatinine Ratio 18.2 (8-20); C Reactive Protein 4.54 mg/L (<8.01); Calcium 9.6 mg/dL (8.6-10.3); EGFR African American 75.6 (>60); EGFR Non-African American 62.5 (>60); Globulin 2.9 g/dL (2-4); Potassium 4.3 mmol/L (3.5-5.0); Total Bilirubin 0.6 mg/dL (0.2-1.0); Total Protein 6.8 g/dL (6.4-8.9)
--- NOTE | 2019-01-31 19:19 | ED ---
Skin Complaint - History of Current Complaint Chief Complaint: EDRashSkinAbscess Time Seen by Provider: 01/31/19 17:49 Stated Complaint: POSS INFECTION IN PACEMAKER PER PT Pain Intensity: 2 - Additional Pertinent History Primary Care Physician: RALPH - Allergy/Home Medications Allergies/Adverse Reactions: Allergies Allergy/AdvReac Type Severity Reaction Status Date / Time adhesive Allergy Hives Verified 01/31/19 16:36 bupropion [From Wellbutrin] Allergy Hives Verified 01/31/19 16:36 doxycycline Allergy Unknown Verified 01/31/19 16:36 Reaction Details erythromycin base Allergy Abdominal Verified 01/31/19 16:36 Pain hydrochlorothiazide Allergy Hives Verified 01/31/19 16:36 levofloxacin Allergy Hives Verified 01/31/19 16:36 Penicillins Allergy Hives Verified 01/31/19 16:36 PMH/Surg Hx/FS Hx/Imm Hx Cardiovascular History: Reports: Hx Atrial Fibrillation, Hx Hypertension, Hx Peripheral Vascular Disease Denies: Hx Pacemaker/ICD Musculoskeletal History: Reports: Hx Bursitis - R knee, Other Musculoskeletal History - bilat knee and shoulder replacements Denies: Hx Arthritis, Hx Rheumatoid Arthritis, Hx Osteoporosis Sensory History: Reports: Hx Contacts or Glasses Denies: Hx Cataracts, Hx Hearing Aid Opthamlomology History: Reports: Hx Contacts or Glasses Denies: Hx Cataracts Psychiatric History: Denies: Hx Panic Disorder - Cancer History Hx Chemotherapy: No Hx Radiation Therapy: No - Surgical History Surgery Procedure, Year, and Place[place] [facility] [place] [place] [facility] [place] [place] [facility] [place] [facility] [place] [place] [facility] [place]ious Disease History: No Infectious Disease History: Denies: Hx Clostridium Difficile, Hx Hepatitis, Hx Human Immunodeficiency Virus (HIV), Hx of Known/Suspected MRSA, Hx Shingles, Hx Tuberculosis, Hx Known/ Suspected VRE, Hx Known/Suspected VRSA, History Other Infectious Disease, Traveled Outside the [place] in Last 30 Days - Family History Known Family History: Positive: Cardiac Disease - CAD to father, Other - Positive breast CA to mother - Social History Alcohol Use: Weekly Alcohol Amount: three times a week Hx Substance Use: No Substance Use Type: Reports: None Hx Tobacco Use: No Smoking Status (MU): Former Smoker Physical Exam Vital Signs On Initial Exam: Initial Vitals Temp Pulse Resp BP Pulse Ox 98.3 F 98 18 203/78 95 01/31/19 16:25 01/31/19 16:25 01/31/19 16:25 01/31/19 16:25 01/31/19 16:25 Diagnostics - Vital Signs Vital Signs Temp Pulse Resp BP Pulse Ox 01/31/19 16:25 98.3 F 98 18 95 - Laboratory Lab Results: Lab Results 01/31/19 01/31/19 Range/Units 18:45 18:45 WBC 8.9 (3.5-10.8) 10^3/uL RBC 4.60 (3.70-4.87) 10^6 /uL Hgb 14.2 (12.0-16.0) g/dL Hct 43 (35-47) % MCV 93 (80-97) fL MCH 31 (27-31) pg MCHC 34 (31-36) g/dL RDW 16 H (10-15) % Plt Count 181 (150-450) 10^3/uL MPV 7.8 (7.4-10.4) fL Neut % (Auto) 80.0 % Lymph % (Auto) 11.0 % [place] % (Auto) 7.9 % Eos % (Auto) 0.7 % Baso % (Auto) 0.4 % Absolute Neuts (auto) 7.1 (1.5-7.7) 10^3/ul Absolute Lymphs (auto) 1.0 (1.0-4.8) 10^3/ul Absolute Monos (auto) 0.7 (0-0.8) 10^3/ul Absolute Eos (auto) 0.1 (0-0.6) 10^3/ul Absolute Basos (auto) 0.0 (0-0.2) 10^3/ul Absolute Nucleated RBC 0.0 10^3/ul Nucleated RBC % 0.1 Sodium 138 (135-145) mmol/L Potassium 4.3 (3.5-5.0) mmol/L Chloride 105 (101-111) mmol/L Carbon Dioxide 28 (22-32) mmol/L Anion Gap 5 (2-11) mmol/L BUN 16 (6-24) mg/dL Creatinine 0.88 (0.51-0.95) mg/dL Est GFR ( Amer) 75.6 (>60) Est GFR (Non-Af Amer) 62.5 (>60) BUN/Creatinine Ratio 18.2 (8-20) Glucose 94 (70-100) mg/dL Calcium 9.6 (8.6-10.3) mg/dL Total Bilirubin 0.60 (0.2-1.0) mg/dL AST 26 (13-39) U/L ALT 18 (7-52) U/L Alkaline Phosphatase 98 (34-104) U/L C-Reactive Protein 4.54 (<8.01) mg/L Total Protein 6.8 (6.4-8.9) g/dL Albumin 3.9 (3.2-5.2) g/dL Globulin 2.9 (2-4) g/dL Albumin/Globulin Ratio 1.3 (1-3) Result Diagrams: 01/31/19 18:45 01/31/19 18:45 Lab Statement: Any lab studies that have been ordered have been reviewed, and results considered in the medical decision making process. Course/Dx - Diagnoses Provider Diagnoses: Postoperative pain Discharge - Sign-Out/Discharge Documenting (check all that apply): Patient Departure Patient Received Moderate/Deep Sedation with Procedure: No - Discharge Plan Condition: Stable Disposition: HOME Patient Education Materials: Pain Management After Surgery (DC) Referrals: Marycarmen Quezada MD [Primary Care Provider] - Additional Instructions: Follow-up at your upcoming appointment with Dr. Blanchard for further evaluation of incision site where pacemaker was placed. Return to the ED for any new or worsening symptoms. - Billing Disposition and Condition Condition: STABLE Disposition: Home
[2019-01-31 19:40] VITALS: BP 199/80
== END 2019-01-31 19:20 | disposition home or self-care (01) ==
LOC: ED 16:23
DX: G89.18 Other acute postprocedural pain (principal); I48.91 Unspecified atrial fibrillation; I10 Essential (primary) hypertension; Z87.891 Personal history of nicotine dependence
CPT/HCPCS: 36415; 80053; 85025; 86140; 99282